=== PATIENT | female | born 1985 | race African-American/Black ===

== ENCOUNTER 2019-03-14 18:40 | Emergency (ER) | payer OTHER, BC ==
[~2019-03-14] VITALS: Ht 154.9 cm; Wt 111.6 kg
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
[2019-03-14] MEDS ORDERED: IV NORMAL SALINE 1,000ML 1,000 ML IV ONE (19:30)
[2019-03-14] MEDS ORDERED: KETOROLAC 30 MG/ML VIAL. IV ONE (19:45)
[2019-03-14] MEDS ORDERED: METOCLOPRAMIDE HCL 10 MG/2 ML VIAL. IV ONE (19:45)
[2019-03-14] MEDS ORDERED: diphenhydrAMINE 50 MG/ML VIAL IVP ONE (19:45)
[2019-03-14] MEDS ORDERED: HYDR-3165 PO (20:14)
[2019-03-14] MEDS ORDERED: CYCL-331 PO (20:14)
[2019-03-14 20:25] VITALS: BP 122/71
== END 2019-03-14 20:25 | disposition home or self-care (01) ==
LOC: ER 18:40
DX: S13.4XXA Sprain of ligaments of cervical spine, initial encounter (principal); M54.6 Pain in thoracic spine; G43.909 Migraine, unspecified, not intractable, without status migrainosus; Z88.5 Allergy status to narcotic agent; V89.2XXA Person injured in unspecified motor-vehicle accident, traffic, initial encounter; Y93.I9 Activity, other involving external motion; Y92.488 Other paved roadways as the place of occurrence of the external cause; Y99.8 Other external cause status
CPT/HCPCS: 96374; 96375; 99284; J1200; J1885; J2765; J7030

== ENCOUNTER 2021-04-28 00:08 | Emergency (ER) | payer BC, OTHER ==
[~2021-04-28] VITALS: Ht 157.5 cm; Wt 113.6 kg
[~2021-04-28 00:08] MED LIST: CYCL-331 PO; HYDR-3165 PO
--- NOTE | 2021-04-28 00:11 | PHYS DOC ---
Past History Past Medical History: Migraines, Ovarian Cyst Past Surgical History: Other Alcohol Use: Rarely Drug Use: None General Adult HPI: HPI: ".. I ve been hurting the last couple days.. lower in my abdomen... "..." I usually see Dr. Peterson Whitaker for my care.. but I just wanted to get checked out tonight.. I ve had ovarian cyst in past..." Patient is a 35 year old female who presents with above hx and complaints abdomen pain the last couple days. Pain seems to be somewhat periumbilical. Patient denies any problems with defecation or urination. Patient denies any trauma. Patient denies any recent travel or specific ill contacts. Patient denies any history immunosuppression. Patient normally follows with Dr. Peterson Whitaker for care. Patient does have an IUD. Patient denies any problems of vaginal discharge or concerns about STD. Review of Systems: Review of Systems: Constitutional: Denies fever or chills Eyes: Denies change in visual acuity HENT: Denies nasal congestion or sore throat Respiratory: Denies cough or shortness of breath Cardiovascular: Denies chest pain or edema GI: Complains of lower abdominal pain, nausea. Denies, vomiting, bloody stools or diarrhea : Denies dysuria Musculoskeletal: Denies back pain or joint pain Integument: Denies rash Neurologic: Denies headache, focal weakness or sensory changes Endocrine: Denies polyuria or polydipsia Lymphatic: Denies swollen glands Psychiatric: Denies depression or anxiety Family History: Family History: Noncontributory to presentation Current Medications: Current Meds: See nursing for home meds Allergies: Allergies: Allergies Coded Allergies Type Severity Reaction Last Updated Verified morphine Allergy Intermediate 03/14/19 Yes Physical Exam: PE: Constitutional: Moderate acute distress, non-toxic appearance. [] HENT: Normocephalic, atraumatic, bilateral external ears normal, oropharynx moist, no oral exudates, nose normal. [] Eyes: PERRLA, EOMI, conjunctiva normal, no discharge. [] Neck: Normal range of motion, no tenderness, supple, no stridor. [] Cardiovascular:Heart rate regular rhythm, no murmur [] Lungs & Thorax: Bilateral breath sounds clear to auscultation [] Abdomen: Bowel sounds normal, soft, periumbilical tenderness, no masses, no pulsatile masses. Obese. Some localization to Lt. on rebound. Skin: Warm, dry, no erythema, no rash. [] Back: No tenderness, no CVA tenderness. [] Extremities: No tenderness, no cyanosis, no clubbing, ROM intact, no edema. [] No psoas or heel tap sign. Neurologic: Alert and oriented X 3, normal motor function, normal sensory function, no focal deficits noted. [] Psychologic: Affect anxious, judgement normal, mood normal. [] EKG: EKG: [] Radiology/Procedures: Radiology/Procedures: My interpretation of acute abdomen film shows no free air in the diaphragm. Does have increased stool and right upper quadrant. Does have an IUD. Nonspecific bowel gas pattern. [] Heart Score: C/O Chest Pain: No Risk Factors: Risk Factors: DM, Current or recent (<one month) smoker, HTN, HLP, family history of CAD, obesity. Risk Scores: Score 0 - 3: 2.5% MACE over next 6 weeks - Discharge Home Score 4 - 6: 20.3% MACE over next 6 weeks - Admit for Clinical Observation Score 7 - 10: 72.7% MACE over next 6 weeks - Early Invasive Strategies Course & Med Decision Making: Course & Med Decision Making Pertinent Labs and Imaging studies reviewed. (See chart for details) Awaiting US for flow at 5:30 hrs. Discussed presentation, plan with at shift change, she will make disposition. Impression: 1. Abdomen Pain. 2. Ovarian Cyst Lt.- Ovary 7.8 x 5.4, with 3.9 cm cyst [] Mitzi Disclaimer: Mitzi Disclaimer: This electronic medical record was generated, in whole or in part, using a voice recognition dictation system. Departure Departure: Referrals: PETERSON WHITAKER (PCP) Mitzi Disclaimer This chart was dictated in whole or in part using Voice Recognition software in a busy, high-work load, and often noisy Emergency Department environment. It may contain unintended and wholly unrecognized errors or omissions. BECCA SALGUERO MD Apr 28, 2021 00:11
[2021-04-28 01:08] LABS: BILIRUBIN,URINE NEG (NEG); CLARITY,URINE CLEAR; COLOR,URINE YELLOW; GLUCOSE,URINE NEG (NEG); NITRITE,URINE NEG (NEG); RBC,URINE OCC /HPF (0-2); UROBILINOGEN,URINE 0.2 mg/dL (0.2 mg/dL); WBC,URINE OCC /HPF (0-4)
[2021-04-28 01:09] LABS: BACTERIA,URINE 0 /HPF (0-FEW); SQUAMOUS EPITHELIAL CELL,UR MOD /LPF
[2021-04-28 01:13] LABS: BARBITURATES NEG (NEG); BENZODIAZEPINES NEG (NEG); CANNABINOIDS NEG (NEG); COCAINE NEG (NEG); METHADONE NEG (NEG); OPIATES NEG (NEG); PHENCYCLIDINE NEG (NEG)
[2021-04-28 01:14] LABS: AMPHETAMINE/METHAMPHETAMINE NEG (NEG)
[2021-04-28] MEDS ORDERED: FAMOTIDINE 20 MG/2 ML VIAL IVP ONE (01:45)
[2021-04-28] MEDS ORDERED: ONDANSETRON PF 4 MG/2 ML VIAL. IVP ONE (01:45)
[2021-04-28] MEDS ORDERED: IV RINGERS SOLUTION,LACTATED 1,000 ML IV SCH (01:45)
[2021-04-28] MEDS ORDERED: KETOROLAC 30 MG/ML VIAL. IVP ONE (01:45)
[2021-04-28] MEDS ORDERED: IOHEXOL 240 MG/ML 50ML VIAL. ONE (01:50)
[2021-04-28 02:22] LABS: BASO % 0 % (0-3); EOS % 0 % (0-3); HEMATOCRIT 37.5 % (36.0-47.0); LYMPH # 1.1 x10^3/uL (1.0-4.8); LYMPH % 14 % (24-48); MEAN CORPUSCULAR HEMOGLOBIN 31 pg (25-35); MEAN CORPUSCULAR HGB CONC 35 g/dL (31-37); MEAN CORPUSCULAR VOLUME 90 fL (79-100); MONO # 0.4 x10^3/uL (0.0-1.1); MONO % 5 % (0-9); NEUT # 6.5 x10^3uL (1.8-7.7); NEUT % 81 % (31-73); PLATELET COUNT 256 x10^3/uL (140-400); RED BLOOD COUNT 4.15 x10^6/uL (3.50-5.40)
[2021-04-28 02:33] LABS: CALCIUM 8.4 mg/dL (8.5-10.1); CREATININE 0.7 mg/dL (0.6-1.0); GFR 116.6; POTASSIUM 3.8 mmol/L (3.5-5.1)
[2021-04-28 02:35] LABS: ALBUMIN 3.8 g/dL (3.4-5.0); DIRECT BILIRUBIN 0.1 mg/dL (0.0-0.2); TOTAL BILIRUBIN 0.4 mg/dL (0.2-1.0); TOTAL PROTEIN 6.9 g/dL (6.4-8.2)
[2021-04-28] MEDS ORDERED: CONTRAST GIVEN. MC PRN (03:15)
[2021-04-28] MEDS ORDERED: IOHEXOL 300 MG/ML 75 ML VIAL. IV ONE (03:15)
--- NOTE | 2021-04-28 05:13 | RAD ---
Examination: CT abdomen pelvis with oral and IV contrast HISTORY: History of lower abdominal pain COMPARISON: None available Technique: Axial CT images of the abdomen pelvis were performed with oral and IV contrast. Coronal an d sagittal reformats are performed Exposure: One or more of the following individualized dose reduction techniques were utilized for thi s examination: 1. Automated exposure control 2. Adjustment of the mA and/or kV according to patient size 3. Use of iterative reconstruction technique FINDINGS: The bibasilar lungs are clear. No evidence of free air identified in the abdomen. Mild decreased atte nuation the liver likely steatosis. The spleen, adrenals grossly appears unremarkable. The gallbladde r is mildly distended. The stomach is mildly distended with visualized pancreas grossly appears unrem arkable. The small bowel is nondilated. The appendix is normal. Feces and gas identified in the colon. The urinary bladder is mildly distende d. Intrauterine contraceptive device is identified. Enlarged appearing left ovary measuring 7.8 x 5.4 cm. There is cystic structure identified within the left ovary measuring 3.9 cm. The bilateral kidneys enhance symmetrically. Mild degenerative changes lumbar spine. IMPRESSION: 1. Enlarged appearing left ovary measuring 7.8 x 5.4 cm. There is cystic structure identified within the left ovary measuring 3.9 cm. Follow-up ultrasound pelvis is recommended. 2. Mild hepatic steatosis. Electronically signed by: Serge Pang MD (04/28/2021 4:10 AM) [id number]
[2021-04-28] MEDS ORDERED: IV RINGERS SOLUTION,LACTATED 1,000 ML IV ONE (05:45)
--- NOTE | 2021-04-28 06:48 | RAD ---
EXAM: ULTRASOUND PELVIS INDICATION: Reason: eval flow to Lt. ovary and cystic structure. COMPARISON: None available. TECHNIQUE: Transvaginal sonography was performed. FINDINGS: The uterus measures 8.7 x 3.9 x 4.5 cm. The endometrium is 4.5 mm in transverse dimension. The right ovary measures 3.7 x 3.2 x 2.8 cm. There is a 1.2 cm cyst or follicle right ovary. The left ovary tate sures 7.8 x 6.3 x 4.9 cm. Blood flow identified in the right and left ovaries. There is a large cysti c structure measuring 7.8 cm containing septation in the left ovary. Intrauterine contraceptive devic e is identified. IMPRESSION: Large cystic structure measuring 7.8 cm containing septation in the left ovary likely a complex cyst or cystic lesion.. Follow-up examination is recommended to document stability. Electronically signed by: Serge Pang MD (04/28/2021 6:46 AM) [id number]
[2021-04-28 07:24] VITALS: BP 131/76
--- NOTE | 2021-04-28 07:35 | RAD ---
Exam Date: 04/28/2021 1:39 AM XR ABDOMEN COMP ACUTE Indication: Reason: pain / Spl. Instructions: / History: . FINDINGS/ IMPRESSION: CHEST: The cardiac silhouette, pulmonary vasculature and lung lujan are within normal limits. The osseous structures are intact. There is mild elevation of the right hemidiaphragm. ABDOMEN AND PELVIS: There is a non-dilated, non-obstructed bowel gas pattern. Air and fecal matter is seen within the co bentley. The visualized osseous structures are intact. An intrauterine device is noted in the pelvis. Electronically signed by: Mane Barksdale MD (04/28/2021 7:32 AM) [id number]
== END 2021-04-28 07:24 | disposition home or self-care (01) ==
LOC: ER 00:08
DX: N83.202 Unspecified ovarian cyst, left side (principal); G43.909 Migraine, unspecified, not intractable, without status migrainosus; Z88.5 Allergy status to narcotic agent
CPT/HCPCS: 36415; 74022; 74177; 76856; 80048; 80076; 80307; 81001; 81025; 83690; 85025; 96361; 96374; 96375; 99285; J1885; J2405; J3490; J7120; Q9967